=== PATIENT | female | born 1980 | race Caucasian/White ===

== ENCOUNTER → 2016-07-07 | Outpatient (REF) | payer BC | LOC: M LAB REF 15:07 | PROVIDERS: ATTEND Physician Assistant Medical | DX: J02.9 Acute pharyngitis, unspecified (principal) ==

== ENCOUNTER 2016-07-08 08:47 | Emergency (ER) | payer BC ==
[2016-07-08] MEDS ORDERED: PERCOCET 5MG/325MG TAB As Ordered ONE (09:16)
--- NOTE | 2016-07-08 10:04 | REP ---
Lumbar spine series: Five views. History: Trauma. Findings: There are clips in the right upper quadrant of the abdomen post cholecystectomy. Lumbar vertebral body heights are preserved. No fracture or collapse is seen. There is minimal disc space narrowing at L3-4 and possibly at L4-5. Other disc spaces are preserved. Pedicles and posterior elements are intact. There is a transitionalized lumbosacral junction with hypertrophy of the lowermost lumbar type vertebra transverse process on the left with a pseudoarthrosis between it and the left side of the sacrum. Impression: Transitionalized lumbosacral junction. No fracture or other acute bony abnormality. Clips in the right upper quadrant. Signed by Royal Bowman MD 07/08/2016 06:33 P
--- NOTE | 2016-07-08 10:17 | EDDOCDS ---
Physician Documentation [facility] Name: Mariam Rowell Age: 36 yrs Sex: Female : 1980 Arrival Date: 07/08/2016 Time: 08:47 Bed I4 / M4 Private MD: Chelsea Cavanaugh M Disposition: 07/08/16 10:02 Discharged to Home/Self Care. Impression: Low back pain - Acute, Fall (on) (from) other stairs and steps. - Condition is Stable. - Discharge Instructions: Back Pain, Adult, [id number]. - Prescriptions for Mobic 7.5 mg Oral Tablet - take 1 tablet by ORAL route once daily take with food; 20 tablet. Zanaflex 4 mg Oral Tablet - take 1 tablet by ORAL route At bedtime As needed May cause drowsiness, do not take while driving/operating heavy machinery.; 20 tablet. - Medication Reconciliation, Work Release Form - 1 day, Local Pharmacy Hours form. - Follow up: Chelsea Cavanaugh; When: 1 - 2 days; Reason: Recheck today's complaints, Continuance of care. Follow up: Emergency Department; Reason: Worsening of conditions. Follow up: [facility]; When: Call to arrange an appointment; Reason: Further diagnostic work-up, Recheck today's complaints, Continuance of care. - Problem is new. - Symptoms have improved. Historical: - Allergies: No known drug Allergies; - Home Meds: 1. Augmentin 875-125 mg Oral tab 1 tab every 12 hours - PMHx: none; - PSHx: cleft palate repair as ; Rhinoplasty; Tubes in ears; Cholecystectomy; - Social history: Smoking status: Patient states was never smoker of tobacco. No barriers to communication noted, The patient speaks fluent [place]. - Family history: Not pertinent. - : The pt / caregiver states he / she is not on anticoagulants. Home medication list is obtained from the patient. - Exposure Risk Screening:: None identified. 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 1 in. (154.94 cm); Pain 5/10; 10:09 BP 133 / 74; Pulse 85; Resp 18; Temp 97.8(O); Pulse Ox 99% on R/A; Pain 0/10; nb2 08:53 Body Mass Index 23.62 (56.70 kg, 154.94 cm) jordana MDM: 09:15 Ice Pack ordered. ef1 09:15 oxyCODONE-acetaminophen 5 mg-325 mg 1 tabs PO once ordered. ef1 09:17 Spine. Lumbosacral, Complete Ordered. EDMS 09:52 Financial registration complete. lg 10:17 [facility] Payment Agreement was scanned into [employer] and attached to record. lg Administered Medications: 09:19 Drug: oxyCODONE-acetaminophen 1 tabs [oxycodone-acetaminophen 5 mg-325 mg tablet (1 jmk tabs)] Route: PO; Signatures: Dispatcher [employer] EDHI Harry Rizo RN RN jmk Peters, Mary, RN RN mcp Ganter, LoriLee, Bravo Reg lg Betty Glass, PA-C PA-C ef1 The chart was reviewed and I authenticate all verbal orders and agree with the evaluation and treatment provided.Attachments: 10:17 [facility] Payment Agreement lg MTDD
--- NOTE | 2016-07-08 10:17 | EDDOCDS ---
Nurse's Notes [facility] Name: Mariam Rowell Age: 36 yrs Sex: Female : 1980 Arrival Date: 07/08/2016 Time: 08:47 Bed I4 / M4 Private MD: Chelsea Cavanaugh M Diagnosis: Low back pain-Acute;Fall (on) (from) other stairs and steps Presentation: 07/08 08:54 Presenting complaint: Patient states: Fell down stairs last night--landed on edge of [facility] stair with back. Having mid back pain'. Adult Sepsis Screening: The patient does not have new or worsening altered mentation. Patient's respiratory rate is less than 22. Systolic blood pressure is greater than 100. Patient has a qSOFA score of 0- Negative Sepsis Screen. Suicide/Homicide risk assessment- the patient denies having any suicidal and/or homicidal ideations and does not present with any other emotional, behavioral or mental health complaints. 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 Transition of care: patient was not received from another setting of care. 08:54 Acuity: ETHEL Level 4 [facility] 08:54 Method Of Arrival: Walkin/Carried/Asstd [facility] Triage Assessment: 08:57 General: Appears uncomfortable, Behavior is cooperative. Pain: Location: back Pain mcp currently is 5 out of 10 on a pain scale. HIV screening NA for this visit Offered previously. Neurological: No deficits noted. Respiratory: Airway is patent Respiratory effort is even, unlabored. Derm: Skin is pink, warm & dry. Musculoskeletal: Circulation, motion, and sensation intact. Injury Description: pt fell down 5stairs. 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 Augmentin 875-125 mg Oral tab 1 tab every 12 hours - PMHx: none; - PSHx: cleft palate repair as infant; Rhinoplasty; Tubes in ears; Cholecystectomy; - Social history: Smoking status: Patient states was never smoker of tobacco. No barriers to communication noted, The patient speaks fluent Moroccan. - Family history: Not pertinent. - : The pt / caregiver states he / she is not on anticoagulants. Home medication list is obtained from the patient. - Exposure Risk Screening:: None identified. Screenin:20 Screening information is obtained from the patient. Fall risk: No risks identified. jmk Assistance ADL's: requires no assistance with activities of daily living. Abuse/DV Screen: The patient / caregiver reports he/she is: not in a situation that causes fear, pain or injury. Nutritional screening: No deficits noted. Advance Directives: Currently, there is no health care proxy. There is no active DNR order. There is no living will. 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 Advance directive information has not previously been placed in an [facility] medical record. home support is adequate. Assessment: 09:20 General: Appears in no apparent distress, skin warm and dry color satisfactory. moist jmk pink oral mucosa. Indicates discomfort to lower thoracic/ upper lumbar region. faint redness noted to pea size area. without ecchymosis or swelling. Increased pain with palaption. Respiratory: No deficits noted. 10:15 General: Appears states pain has decreased to 2/10 and is receptive to discharge. Brisk jmk gait.. Vital Signs: 08:53 BP 145 / 76; Pulse 90; Resp 18; Temp 98.6(O); Pulse Ox 100% on R/A; Weight 56.7 kg; [facility] Height 5 ft. 1 in. (154.94 cm); Pain 5/10; 10:09 BP 133 / 74; Pulse 85; Resp 18; Temp 97.8(O); Pulse Ox 99% on R/A; Pain 0/10; nb2 08:53 Body Mass Index 23.62 (56.70 kg, 154.94 cm) [facility] Vitals: 08:53 Log In Time: July 08, 2016 at 08:45. [facility] ED Course: 08:48 Patient visited by Abelino Leon. mm15 08:48 Chelsea Cavanaugh is Private Physician. mm15 08:48 Patient moved to Waiting mm15 08:55 Triage Initiated [facility] 08:58 Patient visited by Pearl Bro RN. [facility] 08:58 Patient moved to I4 / M4 [facility] 09:05 Betty Glass [facility] ef1 09:05 Harini Ashraf MD is Attending Physician. ef1 09:07 Patient visited by Betty Glass PA-C. ef1 09:20 The patient / caregiver is instructed regarding the plan of care and ED course. jmk 09:58 Patient visited by Betty Glass PA-C. ef1 10:02 Chelsea Cavanaugh is Referral Physician. ef[facility]. ef1 10:10 Patient visited by Lupe Ledesma. nb2 10:15 No IV's were initiated during this patient's visit. No procedures done that require jmk assistance. 10:16 Spine. Lumbosacral, Complete Returned. EDMS 10:17 [facility] Payment Agreement was scanned into [employer] and attached to record. lg Administered Medications: 09:19 Drug: oxyCODONE-acetaminophen 1 tabs [oxycodone-acetaminophen 5 mg-325 mg tablet (1 jmk tabs)] Route: PO; Order Results: Radiology Order: Spine. Lumbosacral, Complete Test: Spine. Lumbosacral, Complete REASON FOR EXAMINATION: Trauma; Lumbar spine series: Five views.; ; History: Trauma.; ; Findings: There are clips in the right upper quadrant of the abdomen post; cholecystectomy. Lumbar vertebral body heights are preserved. No fracture or; collapse is seen. There is minimal disc space narrowing at L3-4 and possibly at; L4-5. Other disc spaces are preserved. Pedicles and posterior elements are; intact. There is a transitionalized lumbosacral junction with hypertrophy of; the lowermost lumbar type vertebra transverse process on the left with a; pseudoarthrosis between it and the left side of the sacrum.; ; Impression:; ; Transitionalized lumbosacral junction. No fracture or other acute bony; abnormality. Clips in the right upper quadrant.; ; Unreviewed; Outcome: 10:02 Discharge ordered by Provider. ef1 10:15 Discharge Assessment: Patient awake, alert and oriented x 3. No cognitive and/or jmk functional deficits noted. Patient verbalized understanding of disposition instructions. patient administered narcotics - yes. Pt provided with safe discharge. The following High Risk Discharge criteria are identified: None. Discharged to home ambulatory, with family. Condition: good. Discharge instructions given to patient, Instructed on discharge instructions, follow up and referral plans. medication usage, no driving heavy equipment, Demonstrated understanding of instructions, medications, Prescriptions given X 2. No special radiology studies were completed. Property :Personal belongings accompany Pt. 10:17 Patient left the ED. pranav Signatures: Dispatcher [employer] EDHarry Blank RN RN jmk Peters, Mary, RN RN mcp Ganter, LoriLee, Betty Lovelace lg, SUSHILA PATony ef1 Abelino Leon mm15 Lupe Ledesma nb2 MTDD
--- NOTE | 2016-07-10 11:18 | EDDOCDS ---
Physician Documentation [facility] Name: Mariam Rowell Age: 36 yrs Sex: Female : 1980 Arrival Date: 07/08/2016 Time: 08:47 Bed I4 / M4 Private MD: Chelsea Cavanaugh M Disposition: 07/08/16 10:02 Discharged to Home/Self Care. Impression: Low back pain - Acute, Fall (on) (from) other stairs and steps. - Condition is Stable. - Discharge Instructions: Back Pain, Adult, [id number]. - Prescriptions for Mobic 7.5 mg Oral Tablet - take 1 tablet by ORAL route once daily take with food; 20 tablet. Zanaflex 4 mg Oral Tablet - take 1 tablet by ORAL route At bedtime As needed May cause drowsiness, do not take while driving/operating heavy machinery.; 20 tablet. - Medication Reconciliation, Work Release Form - 1 day, Local Pharmacy Hours form. - Follow up: Chelsea Cavanaugh; When: 1 - 2 days; Reason: Recheck today's complaints, Continuance of care. Follow up: Emergency Department; Reason: Worsening of conditions. Follow up: [facility]; When: Call to arrange an appointment; Reason: Further diagnostic work-up, Recheck today's complaints, Continuance of care. - Problem is new. - Symptoms have improved. Historical: - Allergies: No known drug Allergies; - Home Meds: 1. Augmentin 875-125 mg Oral tab 1 tab every 12 hours - PMHx: none; - PSHx: cleft palate repair as ; Rhinoplasty; Tubes in ears; Cholecystectomy; - Social history: Smoking status: Patient states was never smoker of tobacco. No barriers to communication noted, The patient speaks fluent Senegalese. - Family history: Not pertinent. - : The pt / caregiver states he / she is not on anticoagulants. Home medication list is obtained from the patient. - Exposure Risk Screening:: None identified. 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 1 in. (154.94 cm); Pain 5/10; 10:09 BP 133 / 74; Pulse 85; Resp 18; Temp 97.8(O); Pulse Ox 99% on R/A; Pain 0/10; nb2 08:53 Body Mass Index 23.62 (56.70 kg, 154.94 cm) [facility] MDM: 09:15 Ice Pack ordered. ef1 09:15 oxyCODONE-acetaminophen 5 mg-325 mg 1 tabs PO once ordered. ef1 09:17 Spine. Lumbosacral, Complete Ordered. EDMS 09:52 Financial registration complete. lg 10:17 [facility] Payment Agreement was scanned into [employer] and attached to record. lg 13:57 T-Sheet-- Draft Copy was scanned into [employer] and attached to record. gb 13:57 Radiology Report was scanned into [employer] and attached to record. gb Administered Medications: 09:19 Drug: oxyCODONE-acetaminophen 1 tabs [oxycodone-acetaminophen 5 mg-325 mg tablet (1 jmk tabs)] Route: PO; Signatures: Dispatcher [employer] EDPR Harry Rizo RN RN Pearl Correa RN RN [facility] Leana Alvarenga, Reg Reg Jose Ruiz, Reg Reg lg Betty Glass, SUSHILA CONTI ef1 The chart was reviewed and I authenticate all verbal orders and agree with the evaluation and treatment provided.Attachments: 10:17 [facility] Payment Agreement lg 13:57 T-Sheet-- Draft Copy gb Chart Complete MTDD
--- NOTE | 2016-07-10 11:18 | EDDOCDS ---
Physician Documentation [facility] Name: Mariam Rowell Age: 36 yrs Sex: Female : 1980 Arrival Date: 07/08/2016 Time: 08:47 Bed I4 / M4 Private MD: Chelsea Cavanaugh M Disposition: 07/08/16 10:02 Discharged to Home/Self Care. Impression: Low back pain - Acute, Fall (on) (from) other stairs and steps. - Condition is Stable. - Discharge Instructions: Back Pain, Adult, [id number]. - Prescriptions for Mobic 7.5 mg Oral Tablet - take 1 tablet by ORAL route once daily take with food; 20 tablet. Zanaflex 4 mg Oral Tablet - take 1 tablet by ORAL route At bedtime As needed May cause drowsiness, do not take while driving/operating heavy machinery.; 20 tablet. - Medication Reconciliation, Work Release Form - 1 day, Local Pharmacy Hours form. - Follow up: Chelsea Cavanaugh; When: 1 - 2 days; Reason: Recheck today's complaints, Continuance of care. Follow up: Emergency Department; Reason: Worsening of conditions. Follow up: [facility]; When: Call to arrange an appointment; Reason: Further diagnostic work-up, Recheck today's complaints, Continuance of care. - Problem is new. - Symptoms have improved. Historical: - Allergies: No known drug Allergies; - Home Meds: 1. Augmentin 875-125 mg Oral tab 1 tab every 12 hours - PMHx: none; - PSHx: cleft palate repair as ; Rhinoplasty; Tubes in ears; Cholecystectomy; - Social history: Smoking status: Patient states was never smoker of tobacco. No barriers to communication noted, The patient speaks fluent [place]. - Family history: Not pertinent. - : The pt / caregiver states he / she is not on anticoagulants. Home medication list is obtained from the patient. - Exposure Risk Screening:: None identified. 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 1 in. (154.94 cm); Pain 5/10; 10:09 BP 133 / 74; Pulse 85; Resp 18; Temp 97.8(O); Pulse Ox 99% on R/A; Pain 0/10; nb2 08:53 Body Mass Index 23.62 (56.70 kg, 154.94 cm) [facility] MDM: 09:15 Ice Pack ordered. ef1 09:15 oxyCODONE-acetaminophen 5 mg-325 mg 1 tabs PO once ordered. ef1 09:17 Spine. Lumbosacral, Complete Ordered. EDMS 09:52 Financial registration complete. lg 10:17 [facility] Payment Agreement was scanned into [employer] and attached to record. lg 13:57 T-Sheet-- Draft Copy was scanned into [employer] and attached to record. gb 13:57 Radiology Report was scanned into [employer] and attached to record. gb Administered Medications: 09:19 Drug: oxyCODONE-acetaminophen 1 tabs [oxycodone-acetaminophen 5 mg-325 mg tablet (1 jmk tabs)] Route: PO; Signatures: Dispatcher [employer] EDLA Harry Rizo RN RN Pearl Correa RN RN [facility] Leana Alvarenga, Reg Reg Jose Ruiz, Reg Reg lg Betty Glass, SUSHILA CONTI ef1 The chart was reviewed and I authenticate all verbal orders and agree with the evaluation and treatment provided.Attachments: 10:17 [facility] Payment Agreement lg 13:57 T-Sheet-- Draft Copy gb Chart Complete MTDD
--- NOTE | 2016-07-10 11:18 | EDDOCDS ---
Nurse's Notes [facility] Name: Mariam Rowell Age: 36 yrs Sex: Female : 1980 Arrival Date: 07/08/2016 Time: 08:47 Bed I4 / M4 Private MD: Chelsea Cavanaugh M Diagnosis: Low back pain-Acute;Fall (on) (from) other stairs and steps Presentation: 07/08 08:54 Presenting complaint: Patient states: Fell down stairs last night--landed on edge of [facility] stair with back. Having mid back pain'. Adult Sepsis Screening: The patient does not have new or worsening altered mentation. Patient's respiratory rate is less than 22. Systolic blood pressure is greater than 100. Patient has a qSOFA score of 0- Negative Sepsis Screen. Suicide/Homicide risk assessment- the patient denies having any suicidal and/or homicidal ideations and does not present with any other emotional, behavioral or mental health complaints. 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 Transition of care: patient was not received from another setting of care. 08:54 Acuity: ETHEL Level 4 [facility] 08:54 Method Of Arrival: Walkin/Carried/Asstd [facility] Triage Assessment: 08:57 General: Appears uncomfortable, Behavior is cooperative. Pain: Location: back Pain mcp currently is 5 out of 10 on a pain scale. HIV screening NA for this visit Offered previously. Neurological: No deficits noted. Respiratory: Airway is patent Respiratory effort is even, unlabored. Derm: Skin is pink, warm & dry. Musculoskeletal: Circulation, motion, and sensation intact. Injury Description: pt fell down 5stairs. 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 Augmentin 875-125 mg Oral tab 1 tab every 12 hours - PMHx: none; - PSHx: cleft palate repair as infant; Rhinoplasty; Tubes in ears; Cholecystectomy; - Social history: Smoking status: Patient states was never smoker of tobacco. No barriers to communication noted, The patient speaks fluent British. - Family history: Not pertinent. - : The pt / caregiver states he / she is not on anticoagulants. Home medication list is obtained from the patient. - Exposure Risk Screening:: None identified. Screenin:20 Screening information is obtained from the patient. Fall risk: No risks identified. jmk Assistance ADL's: requires no assistance with activities of daily living. Abuse/DV Screen: The patient / caregiver reports he/she is: not in a situation that causes fear, pain or injury. Nutritional screening: No deficits noted. Advance Directives: Currently, there is no health care proxy. There is no active DNR order. There is no living will. 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 Advance directive information has not previously been placed in an [facility] medical record. home support is adequate. Assessment: 09:20 General: Appears in no apparent distress, skin warm and dry color satisfactory. moist jmk pink oral mucosa. Indicates discomfort to lower thoracic/ upper lumbar region. faint redness noted to pea size area. without ecchymosis or swelling. Increased pain with palaption. Respiratory: No deficits noted. 10:15 General: Appears states pain has decreased to 2/10 and is receptive to discharge. Brisk jmk gait.. Vital Signs: 08:53 BP 145 / 76; Pulse 90; Resp 18; Temp 98.6(O); Pulse Ox 100% on R/A; Weight 56.7 kg; [facility] Height 5 ft. 1 in. (154.94 cm); Pain 5/10; 10:09 BP 133 / 74; Pulse 85; Resp 18; Temp 97.8(O); Pulse Ox 99% on R/A; Pain 0/10; nb2 08:53 Body Mass Index 23.62 (56.70 kg, 154.94 cm) [facility] Vitals: 08:53 Log In Time: July 08, 2016 at 08:45. [facility] ED Course: 08:48 Patient visited by Abelino Leon. mm15 08:48 Chelsea Cavanaugh is Private Physician. mm15 08:48 Patient moved to Waiting mm15 08:55 Triage Initiated [facility] 08:58 Patient visited by Pearl Bro RN. [facility] 08:58 Patient moved to I4 / M4 [facility] 09:05 Betty Glass PA-C is [facility]. ef1 09:05 Harini Ashraf MD is Attending Physician. ef1 09:07 Patient visited by Betty Glass PA-C. ef1 09:20 The patient / caregiver is instructed regarding the plan of care and ED course. jmk 09:58 Patient visited by Betty Glass PA-C. ef1 10:02 Chelsea Cavanaugh is Referral Physician. ef1 10:[facility]. ef1 10:10 Patient visited by Lupe Ledesma. nb2 10:15 No IV's were initiated during this patient's visit. No procedures done that require jmk assistance. 10:16 Spine. Lumbosacral, Complete Returned. EDMS 10:17 ON LICENSE OF [facility] Payment Agreement was scanned into [employer] and attached to record. lg 13:57 T-Sheet-- Draft Copy was scanned into [employer] and attached to record. gb 13:57 Radiology Report was scanned into [employer] and attached to record. gb Administered Medications: 09:19 Drug: oxyCODONE-acetaminophen 1 tabs [oxycodone-acetaminophen 5 mg-325 mg tablet (1 jmk tabs)] Route: PO; Order Results: Radiology Order: Spine. Lumbosacral, Complete Test: Spine. Lumbosacral, Complete REASON FOR EXAMINATION: Trauma; Lumbar spine series: Five views.; ; History: Trauma.; ; Findings: There are clips in the right upper quadrant of the abdomen post; cholecystectomy. Lumbar vertebral body heights are preserved. No fracture or; collapse is seen. There is minimal disc space narrowing at L3-4 and possibly at; L4-5. Other disc spaces are preserved. Pedicles and posterior elements are; intact. There is a transitionalized lumbosacral junction with hypertrophy of; the lowermost lumbar type vertebra transverse process on the left with a; pseudoarthrosis between it and the left side of the sacrum.; ; Impression:; ; Transitionalized lumbosacral junction. No fracture or other acute bony; abnormality. Clips in the right upper quadrant.; ; ; Signed by; Royal Bowman MD 07/08/2016 06:33 P; Outcome: 10:02 Discharge ordered by Provider. ef1 10:15 Discharge Assessment: Patient awake, alert and oriented x 3. No cognitive and/or jmk functional deficits noted. Patient verbalized understanding of disposition instructions. patient administered narcotics - yes. Pt provided with safe discharge. The following High Risk Discharge criteria are identified: None. Discharged to home ambulatory, with family. Condition: good. Discharge instructions given to patient, Instructed on discharge instructions, follow up and referral plans. medication usage, no driving heavy equipment, Demonstrated understanding of instructions, medications, Prescriptions given X 2. No special radiology studies were completed. Property :Personal belongings accompany Pt. 10:17 Patient left the ED. pranav Signatures: Dispatcher [employer] EDHarry Blank RN RN jmk Peters, Mary, RN RN mcp Barnhardt, Gloria, Reg Reg gb Jose Guido, Reg Reg lg Betty Glass, PA-C PA-C ef1 Abelino Leon mm15 Lupe Ledesma2 Chart Complete MTDD
== END 2016-07-08 10:17 | disposition home or self-care (01) ==
LOC: M ED 08:47
DX: M54.5 Low back pain (principal)

== ENCOUNTER 2017-07-19 09:06 | Emergency (ER) | payer BC ==
[2017-07-19 09:46] LABS: KETONE, URINE AUTO RFX NEGATIVE (NEGATIVE); MUCUS, URINE RFX SMALL (NEGATIVE); NITRITE, URINE AUTO RFX NEGATIVE (NEGATIVE); RBC, URINE AUTO RFX 1 /HPF (0-3); SPECIFIC GRAVITY UR AUTO RFX 1.023 (1.002-1.035); SQUAM EPITHELIAL CELL UR AURFX 4 /HPF (0-6); WBC, URINE AUTO RFX 4 /HPF (0-3)
[2017-07-19 09:49] LABS: LEUKOCYTE ESTERASE UR AUTO RFX 1+ (NEGATIVE)
[2017-07-19 10:09] LABS: CONTROL LINE UCG INT CTR LINE PRESENT; URINE PREG TEST NEGATIVE (NEGATIVE)
[2017-07-19 10:19] LABS: INFLUENZA A AMPLIFICATION NEGATIVE (NEGATIVE); INFLUENZA B AMPLIFICATION NEGATIVE (NEGATIVE)
== END 2017-07-19 11:00 | disposition home or self-care (01) ==
LOC: M ED 09:06
DX: N30.00 Acute cystitis without hematuria (principal); Z91.048 Other nonmedicinal substance allergy status
CPT/HCPCS: 84703

== ENCOUNTER → 2018-03-10 | Outpatient (REF) | payer BC ==
[2018-03-10 13:43] LABS: CONTROL LINE HPYORI INT CTR LINE PRESENT; H PYLORI QUALITATIVE IgG NEGATIVE (NEGATIVE)
[2018-03-15 08:29] LABS: H PYLORI SERUM QUANT IGM <9.0 units (0.0-8.9)
[2018-03-15 08:29] LABS: IGASUB3 36.8 mg/dL (13.4-97.9); IgA SERUM (part of Subclasses) 253 mg/dL (87-352); TISSUE TRANSGLUTAMINASE IgA <2 U/mL (0-3)
== END ==
LOC: M LABDRAW1 12:08
DX: R19.7 Diarrhea, unspecified (principal)

== ENCOUNTER 2018-03-28 06:55 | Day surgery (SDC) | payer BC ==
[~2018-03-28 06:55] MED LIST: NS 1,000 ML IV
[2018-03-28] MEDS ORDERED: PROPOFOL 500 MG/50 ML VIAL As Ordered (08:19)
[2018-03-28] MEDS ORDERED: LIDOCAINE 2% INJ 100 MG/5 ML SDV (FOR ANES.) As Ordered (08:19)
== END 2018-03-28 09:10 | disposition home or self-care (01) ==
LOC: M OPP 06:55
DX: R19.7 Diarrhea, unspecified (principal); K64.8 Other hemorrhoids; G43.909 Migraine, unspecified, not intractable, without status migrainosus; R06.83 Snoring; Z80.0 Family history of malignant neoplasm of digestive organs; Z80.8 Family history of malignant neoplasm of other organs or systems; Z79.899 Other long term (current) drug therapy
CPT/HCPCS: 45380

== ENCOUNTER → 2019-11-30 | Outpatient (REF) | payer BC ==
[~2019-11-30] MED LIST changes: +CIPR-249 PO; -NS 1,000 ML IV; +SUMA100T2 PO
== END ==
LOC: M LAB REF 13:02
PROVIDERS: ATTEND Physician Assistant
DX: N39.0 Urinary tract infection, site not specified (principal)

== ENCOUNTER → 2020-07-26 | Outpatient (REF) | payer BC | LOC: M SFHCADAM 12:20 | PROVIDERS: ATTEND Physician Assistant | DX: Z12.4 Encounter for screening for malignant neoplasm of cervix (principal) | CPT/HCPCS: 87624; G0123 ==

== ENCOUNTER 2022-11-02 08:39 | Day surgery (SDC) | payer BC ==
[~2022-11-02] VITALS: Ht 154.9 cm; Wt 61.3 kg
[~2022-11-02 08:39] MED LIST changes: +NS 1,000 ML IV ONE
[2022-11-02] MEDS ORDERED: propofoL 200 MG/20 ML VIAL As Ordered ONE (10:58)
[2022-11-02 11:27] VITALS: BP 111/57
== END 2022-11-02 11:30 | disposition home or self-care (01) ==
LOC: M OPP 08:39
PROVIDERS: ATTEND Internal Medicine Gastroenterology
DX: Z12.11 Encounter for screening for malignant neoplasm of colon (principal); Z80.0 Family history of malignant neoplasm of digestive organs; D12.6 Benign neoplasm of colon, unspecified; K64.4 Residual hemorrhoidal skin tags; K64.8 Other hemorrhoids; Z79.899 Other long term (current) drug therapy

== ENCOUNTER → 2023-09-16 | Outpatient (REF) | payer BC ==
[~2023-09-16] MED LIST changes: -NS 1,000 ML IV ONE
[2023-09-16 13:21] LABS: AMORPHOUS SEDIMENT MODERATE (NEGATIVE); APPEARANCE, URINE TURBID (CLEAR); BACTERIA, URINE AUTO 1+ (NEGATIVE); BILIRUBIN, URINE AUTO NEGATIVE (NEGATIVE); BLOOD, URINE BLOOD NEGATIVE (NEGATIVE); COLOR, URINE YELLOW (YELLOW); GLUCOSE, URINE (UA) AUTO NEGATIVE (NEGATIVE); KETONE, URINE AUTO NEGATIVE (NEGATIVE); LEUKOCYTE ESTERASE, URINE AUTO NEGATIVE (NEGATIVE); MUCUS, URINE LARGE (NEGATIVE); NITRITE, URINE AUTO NEGATIVE (NEGATIVE); PROTEIN, URINE AUTO NEGATIVE (NEGATIVE); RBC, URINE AUTO 0 /HPF (0-3); SPECIFIC GRAVITY URINE AUTO 1.023 (1.002-1.035); SQUAMOUS EPITHELIAL CELL UR AU 0 /HPF (0-6); UROBILINOGEN, URINE AUTO 0.2 mg/dL (0.0-2.0); WBC, URINE AUTO 2 /HPF (0-3)
[2023-09-16 13:29] LABS: BASO # 0.1 10^3/uL (0.0-0.2); BASO % 0.6 % (0.0-1.0); EOS # 0.1 10^3/uL (0.0-0.5); EOS % 0.7 % (0.0-3.0); HEMATOCRIT 34.5 % (36.0-47.0); HEMOGLOBIN 9.8 g/dl (12.0-15.5); MEAN CORPUSCULAR HEMOGLOBIN 19.6 pg (27.0-33.0); MEAN CORPUSCULAR HGB CONC 28.4 g/dl (32.0-36.5); MONO # 0.5 10^3/uL (0.0-0.8); MONO % 5.7 % (2.0-8.0); NEUTROPHILS # 7.2 10^3/uL (1.5-8.5); NEUTROPHILS % 81.5 % (36.0-66.0); PLATELET COUNT, AUTOMATED 350 10^3/uL (150-450); WHITE BLOOD COUNT 8.8 10^3/uL (4.0-10.0)
[2023-09-16 13:32] LABS: ALBUMIN 3.5 G/DL (3.2-5.2); ALKALINE PHOSPHATASE 132 U/L (46-116); ALT/SGPT 12 U/L (7.0-40); AST/SGOT 17 U/L (<34); BILIRUBIN,TOTAL 0.5 MG/DL (0.3-1.2); BLOOD UREA NITROGEN 13 MG/DL (9-23); CALCIUM LEVEL 9.2 MG/DL (8.5-10.1); CARBON DIOXIDE LEVEL 24 MMOL/L (20-31); CHLORIDE LEVEL 106 MMOL/L (98-107); CHOLESTEROL LEVEL 215 MG/DL (<200); CHOLESTEROL RISK RATIO 3.91 (<5); CREATININE FOR GFR 0.68 MG/DL (0.55-1.30); GLOMERULAR FILTRATION RATE > 60.0 (>58); GLUCOSE, FASTING 93 MG/DL (60-100); HDL CHOLESTEROL 54.9 MG/DL (>40); LDL CHOLESTEROL 144.7 MG/DL (<100); NON-HDL-C 160.1 MG/DL; POTASSIUM SERUM 4.3 MMOL/L (3.5-5.1); SODIUM LEVEL 135 MMOL/L (136-145); TOTAL PROTEIN 7.2 G/DL (5.7-8.2); TRIGLYCERIDES LEVEL 77 MG/DL (<150)
[2023-09-16 13:34] LABS: FREE T4 1.03 NG/DL (0.89-1.76); THYROID STIMULATING HORMONE 0.947 uIU/ML (0.55-4.78)
[2023-09-16 13:38] LABS: HEMOGLOBIN A1c 5.2 % (4.0-6.0)
== END ==
LOC: M SFHCADAM 08:32
PROVIDERS: ATTEND Physician Assistant
DX: R82.90 Unspecified abnormal findings in urine (principal); Z12.4 Encounter for screening for malignant neoplasm of cervix; Z13.1 Encounter for screening for diabetes mellitus; Z13.220 Encounter for screening for lipoid disorders; F52.31 Female orgasmic disorder; R63.5 Abnormal weight gain

== ENCOUNTER → 2023-09-28 | Outpatient (CLI) | payer BC | LOC: M RAD 13:35 | PROVIDERS: ATTEND Physician Assistant | DX: N81.4 Uterovaginal prolapse, unspecified (principal) ==

== ENCOUNTER 2024-01-12 11:59 | Day surgery (SDC) | payer BC ==
[~2024-01-12] VITALS: Ht 154.9 cm; Wt 67.4 kg
[~2024-01-12 11:59] MED LIST changes: +LR 1,000 ML IV SCH
[2024-01-12 12:48] LABS: HEMATOCRIT 36.7 % (36.0-47.0); HEMOGLOBIN 10.4 g/dl (12.0-15.5); MEAN CORPUSCULAR HEMOGLOBIN 19.5 pg (27.0-33.0); MEAN CORPUSCULAR HGB CONC 28.3 g/dl (32.0-36.5); MEAN CORPUSCULAR VOLUME 68.7 fl (80.0-96.0); PLATELET COUNT, AUTOMATED 376 10^3/uL (150-450); RED BLOOD COUNT 5.34 10^6/uL (4.00-5.40); WHITE BLOOD COUNT 11.9 10^3/uL (4.0-10.0)
[2024-01-12] MEDS ORDERED: LR 1,000 ML IV SCH (13:05)
[2024-01-12] MEDS ORDERED: fentaNYL 100 MCG/2 ML INJECTION As Ordered ONE (14:12)
[2024-01-12] MEDS ORDERED: MIDAZOLAM INJ 2MG/2ML VIAL As Ordered ONE (14:12)
[2024-01-12] MEDS ORDERED: propofoL 200 MG/20 ML VIAL As Ordered ONE (14:12)
[2024-01-12] MEDS ORDERED: KETOROLAC 60MG 2ML VIAL As Ordered ONE (14:39)
[2024-01-12 15:27] VITALS: BP 135/79; TEMP 97.6; O2SAT 100
== END 2024-01-12 15:28 | disposition home or self-care (01) ==
LOC: M SDC 11:59
PROVIDERS: ATTEND Obstetrics & Gynecology
DX: N84.1 Polyp of cervix uteri (principal); N85.2 Hypertrophy of uterus; K58.9 Irritable bowel syndrome, unspecified; G43.909 Migraine, unspecified, not intractable, without status migrainosus; Z79.899 Other long term (current) drug therapy
CPT/HCPCS: 36415; 58558; 81025; 85027; 86850; 86900; 86901; 88305; J1885; J2250; J3010

== ENCOUNTER 2024-05-03 12:49 | Day surgery (SDC) | payer BC ==
[~2024-05-03] VITALS: Ht 154.9 cm; Wt 67.1 kg
[~2024-05-03 12:49] MED LIST changes: -LR 1,000 ML IV SCH
[2024-05-03] MEDS ORDERED: OXYC1TAB23 PO (13:02)
[2024-05-03 13:18] LABS: HEMOGLOBIN 10.1 g/dl (12.0-15.5); MEAN CORPUSCULAR HEMOGLOBIN 19.5 pg (27.0-33.0); MEAN CORPUSCULAR HGB CONC 28.9 g/dl (32.0-36.5); MEAN CORPUSCULAR VOLUME 67.7 fl (80.0-96.0); PLATELET COUNT, AUTOMATED 374 10^3/uL (150-450); RED BLOOD COUNT 5.17 10^6/uL (4.00-5.40); WHITE BLOOD COUNT 7.3 10^3/uL (4.0-10.0)
[2024-05-03] MEDS: NS 1,000 ML IV SCH (14:01)
[2024-05-03] MEDS: SCOPOLAMINE 1MG TRANSDERMAL PATCH TOP ONE (14:17)
[2024-05-03] MEDS ORDERED: ROCURONIUM BROMIDE 50MG/5ML VIAL As Ordered ONE (14:39)
[2024-05-03] MEDS ORDERED: fentaNYL 100 MCG/2 ML INJECTION As Ordered ONE (14:39)
[2024-05-03] MEDS ORDERED: LIDOCAINE 2% 100MG/5ML SDV (FOR ANES.) As Ordered ONE (14:39)
[2024-05-03] MEDS ORDERED: SUGAMMADEX SODIUM 500 MG/5 ML VIAL (BRIDION) As Ordered ONE (14:39)
[2024-05-03] MEDS ORDERED: MIDAZOLAM INJ 2MG/2ML VIAL As Ordered ONE (14:39)
[2024-05-03] MEDS ORDERED: ONDANSETRON 4MG 2ML VIAL As Ordered ONE (14:39)
[2024-05-03] MEDS ORDERED: propofoL 200 MG/20 ML VIAL As Ordered ONE (14:39)
[2024-05-03] MEDS: FLUORESCEIN 10% (100MG/ML) 5ML VIAL As Ordered ONE (14:59)
[2024-05-03] MEDS ORDERED: KETOROLAC 60MG 2ML VIAL As Ordered ONE (15:12)
[2024-05-03] MEDS: ceFAZolin SOD 2 GM in IV 1 EA IV ONE (15:25)
[2024-05-03] MEDS ORDERED: ACETAMINOPHEN 1000MG/100ML IV BAG As Ordered ONE (15:50)
[2024-05-03] MEDS ORDERED: HYDROmorphone HCL 2MG/ML 1ML VIAL As Ordered ONE (16:05)
[2024-05-03] MEDS ORDERED: diphenhydrAMINE 50MG/ML VIAL IV PRN (16:45)
[2024-05-03] MEDS ORDERED: HYDROMORPHONE HCL 0.5 MG/ 0.5 ML SYRINGE IV PRN (16:45)
[2024-05-03] MEDS ORDERED: METOCLOPRAMIDE INJ 10MG/2ML VIAL IV PRN (16:45)
[2024-05-03] MEDS ORDERED: MEPERIDINE 25 MG/ML 1ML VIAL IV PRN (16:45)
[2024-05-03] MEDS ORDERED: oxyCODONE 5MG TAB PO PRN (16:45)
[2024-05-03] MEDS ORDERED: fentaNYL 100 MCG/2 ML INJECTION IV PRN (16:45)
[2024-05-03] MEDS: ONDANSETRON 4MG 2ML VIAL IV PRN (17:25)
[2024-05-03] MEDS ORDERED: SIMETHICONE 80MG CHEW TAB PO SCH (18:00)
[2024-05-03 18:20] VITALS: BP 138/73; TEMP 97.8; O2SAT 98
[2024-05-03] MEDS ORDERED: PERCOCET 5MG/325MG TAB PO PRN (19:05)
[2024-05-03] MEDS ORDERED: IBUPROFEN 800 MG TAB PO ONE (23:00)
[2024-05-04] MEDS ORDERED: IBUPROFEN 800 MG TAB PO SCH (06:00)
== END 2024-05-03 18:50 | disposition home or self-care (01) ==
LOC: M SDC 12:49
PROVIDERS: ATTEND Obstetrics & Gynecology
DX: D25.1 Intramural leiomyoma of uterus (principal); N92.0 Excessive and frequent menstruation with regular cycle; N83.11 Corpus luteum cyst of right ovary; N83.02 Follicular cyst of left ovary; N83.01 Follicular cyst of right ovary; N83.12 Corpus luteum cyst of left ovary; K58.9 Irritable bowel syndrome, unspecified; G43.909 Migraine, unspecified, not intractable, without status migrainosus; Z79.899 Other long term (current) drug therapy
CPT/HCPCS: 36415; 58571; 81025; 85027; 86850; 86900; 86901; 88307; J0131; J0665; J0690; J1100; J1171; J1885; J2250; J2405; J3010; S2900